=== PATIENT | male | born 1950 | race Caucasian/White ===

== ENCOUNTER 2016-11-18 19:08 | Emergency (ER) | payer MEDICARE ==
[~2016-11-18] VITALS: Ht 167.6 cm; Wt 68.2 kg
[2016-11-18] MEDS ORDERED: [UNRECOGNIZED DRUG - REMARK] PO (19:40)
[2016-11-18] MEDS ORDERED: [UNRECOGNIZED DRUG - REMARK] PO (19:40)
[2016-11-18 20:07] LABS: GLUCOSE,POINT OF CARE 102 MG/DL (70-110)
[2016-11-18 22:19] VITALS: BP 132/60
== END 2016-11-18 23:18 | disposition home or self-care (01) ==
LOC: EMS 19:11
DX: S50.02XA Contusion of left elbow, initial encounter (principal); S00.93XA Contusion of unspecified part of head, initial encounter; E11.9 Type 2 diabetes mellitus without complications; I10 Essential (primary) hypertension; Z86.73 Personal history of transient ischemic attack (TIA), and cerebral infarction without residual deficits; Y04.2XXA Assault by strike against or bumped into by another person, initial encounter; Y93.89 Activity, other specified; Y92.89 Other specified places as the place of occurrence of the external cause; Y99.8 Other external cause status
CPT/HCPCS: 70450; 82962; 99284

== ENCOUNTER 2017-07-20 17:15 | Inpatient (IN) | payer MEDICAID, MEDICARE, OTHER ==
[~2017-07-20] VITALS: Ht 167.6 cm; Wt 74.8 kg
[~2017-07-20 17:15] MED LIST: [UNRECOGNIZED DRUG - REMARK] PO; [UNRECOGNIZED DRUG - REMARK] PO
[2017-07-20 19:33] LABS: GLUCOSE,POINT OF CARE 121 MG/DL (70-110)
[2017-07-20 19:50] LABS: BASOPHILS % (AUTO) 0.5 % (0.0-2.0); EOSINOPHILS % (AUTO) 1.1 % (1.0-6.0); HEMOGLOBIN 15.2 g/dL (13.5-17.5); LYMPHOCYTES # (AUTO) 1.2 K/uL (1.0-4.8); LYMPHOCYTES % (AUTO) 18.9 % (22.0-44.0); MEAN CORPUSCULAR HEMOGLOBIN 30.6 pg (26.0-34.0); MEAN CORPUSCULAR HGB CONC 34.5 G/dL (31.0-37.0); MEAN CORPUSCULAR VOLUME 89 fL (80-100); MONOCYTES # (AUTO) 0.4 K/uL (0.1-1.0); MONOCYTES % (AUTO) 6.8 % (2.0-9.0); NEUTROPHILS # (AUTO) 4.5 K/uL (1.8-7.7); NEUTROPHILS % (AUTO) 72.7 % (40.0-70.0); PLATELET COUNT (AUTO) 278 K/uL (150-450); RED BLOOD CELL COUNT(AUTO) 4.96 MIL/uL (4.50-5.90); RED CELL DISTRIBUTION WIDTH 13.6 % (11.5-14.5)
[2017-07-20 19:57] LABS: ANION GAP 11 mmol/L (8-16); CALCIUM, TOTAL 8.6 mg/dL (8.8-10.5); CARBON DIOXIDE 26 mmol/L (22-29); CHLORIDE 104 mmol/L (98-107); CREATININE 1.22 mg/dL (0.60-1.30); GLOMERULAR FILTR. RATE CALC 59 mL/min (>60); GLUCOSE,RANDOM 124 mg/dL (70-110); POTASSIUM 3.6 mmol/L (3.5-5.1); SODIUM SERUM 141 mmol/L (136-145); UREA NITROGEN, BLOOD 23 mg/dL (7-18)
[2017-07-20 20:03] LABS: ALANINE AMINOTRANSFERASE 34 U/L (12-78); ALBUMIN 3.7 g/dL (3.4-5.0); ALKALINE PHOSPHATASE 99 U/L (46-116); ASPARTATE AMINOTRANSFERASE 24 U/L (15-37); BILIRUBIN,TOTAL 0.3 mg/dL (0.1-1.0); TOTAL PROTEIN, SERUM 7.9 g/dL (6.4-8.2)
[2017-07-21] VITALS (10 sets, daily range): BP systolic 138–160; BP diastolic 68–94
[2017-07-21] MEDS ORDERED: LOPERAMIDE HCL 2 MG CAPSULE PO PRN (01:45)
[2017-07-21] MEDS ORDERED: MAG HYDROX/AL HYDROX/SIMETH ES 30 ML SUSPENSION UDCUP PO PRN (01:45)
[2017-07-21] MEDS ORDERED: LORazepam 2 MG TABLET PO PRN (01:45)
[2017-07-21] MEDS ORDERED: HydrOXYzine PAMOATE 50 MG CAPSULE PO PRN (01:45)
[2017-07-21] MEDS ORDERED: ACETAMINOPHEN 325 MG TABLET PO PRN ×2 (01:45→09:15)
[2017-07-21] MEDS ORDERED: GuaiFENesin/D-METHORPHAN [SUGAR-FREE] 200-20MG/10 ML SYRUP UDCUP PO PRN (01:45)
[2017-07-21] MEDS ORDERED: MAGNESIUM HYDROXIDE SUSPENSION 30 ML UDCUP PO PRN (01:45)
[2017-07-21] MEDS ORDERED: CYANOCOBALAMIN 1,000 MCG/ML VIAL IM ONE (01:45)
[2017-07-21] MEDS: MULTIVITAMINS WITH MINERALS, THERAPEUTIC TABLET PO SCH (09:35)
[2017-07-21] MEDS: AmLODIPine BESYLATE 5 MG TABLET PO SCH (09:35)
[2017-07-21] MEDS: FOLIC ACID 1 MG TABLET PO SCH (09:35)
[2017-07-21] MEDS: THIAMINE HCL 100 MG TABLET PO SCH ×2 (09:35→16:27)
[2017-07-21] MEDS: IBUPROFEN 400 MG TABLET PO PRN (17:15)
[2017-07-22 01:00] VITALS: BP 138/86
[2017-07-22] MEDS: IBUPROFEN 400 MG TABLET PO PRN ×2 (06:34→13:08)
[2017-07-22] MEDS ORDERED: LORazepam 2 MG TABLET PO PRN (07:00)
[2017-07-22 08:30] VITALS: BP 167/95
[2017-07-22] MEDS: FOLIC ACID 1 MG TABLET PO SCH (08:44)
[2017-07-22] MEDS: THIAMINE HCL 100 MG TABLET PO SCH ×2 (08:44→17:00)
[2017-07-22] MEDS: AmLODIPine BESYLATE 5 MG TABLET PO SCH (08:44)
[2017-07-22] MEDS: LORazepam 2 MG TABLET PO SCH ×4 (08:44→21:00)
[2017-07-22] MEDS: MULTIVITAMINS WITH MINERALS, THERAPEUTIC TABLET PO SCH (08:44)
[2017-07-22] MEDS ORDERED: PERMETHRIN 5% 60 GM CREAM TP ONE (09:15)
[2017-07-22 13:09] VITALS: BP 163/106
[2017-07-22] MEDS ORDERED: AmLODIPine BESYLATE 5 MG TABLET PO ONE (13:15)
[2017-07-22 14:10] VITALS: BP 132/79
[2017-07-22 15:00] VITALS: BP 141/84
[2017-07-22 19:00] VITALS: BP 138/88
[2017-07-23 01:15] VITALS: BP 153/85
[2017-07-23 06:27] LABS: HEMOGLOBIN A1C 6.6 % (4.5-6.2)
[2017-07-23 06:39] LABS: CHOL/HDL RATIO 1.7 (4.2-7.3); THYROID STIMULATING HORMONE 1.89 uIU/mL (0.36-3.74)
[2017-07-23] MEDS: MULTIVITAMINS WITH MINERALS, THERAPEUTIC TABLET PO SCH (08:48)
[2017-07-23] MEDS: AmLODIPine BESYLATE 10 MG TABLET PO SCH (08:48)
[2017-07-23] MEDS: THIAMINE HCL 100 MG TABLET PO SCH ×2 (08:48→16:14)
[2017-07-23] MEDS: LORazepam 2 MG TABLET PO SCH ×4 (08:48→20:34)
[2017-07-23] MEDS: FOLIC ACID 1 MG TABLET PO SCH (08:48)
[2017-07-23 09:50] VITALS: BP 150/84
[2017-07-23] MEDS: IBUPROFEN 400 MG TABLET PO PRN (11:26)
[2017-07-23 12:30] VITALS: BP 137/79
[2017-07-23 16:45] VITALS: BP 132/77
[2017-07-24] MEDS ORDERED: LORazepam 1 MG TABLET PO PRN (07:00)
[2017-07-24 08:30] VITALS: BP 143/84
[2017-07-24 08:31] VITALS: BP 143/84
[2017-07-24] MEDS: THIAMINE HCL 100 MG TABLET PO SCH ×2 (09:13→16:42)
[2017-07-24] MEDS: MULTIVITAMINS WITH MINERALS, THERAPEUTIC TABLET PO SCH (09:14)
[2017-07-24] MEDS: LORazepam 1 MG TABLET PO SCH ×4 (09:14→20:41)
[2017-07-24] MEDS: FOLIC ACID 1 MG TABLET PO SCH (09:14)
[2017-07-24] MEDS: AmLODIPine BESYLATE 10 MG TABLET PO SCH (09:14)
[2017-07-24] MEDS: FLUoxetine HCL 10 MG CAPSULE PO SCH (12:50)
[2017-07-24] MEDS: OLANZapine 5 MG RAPDIS TABLET PO SCH (16:42)
[2017-07-24 17:00] VITALS: BP 126/76
[2017-07-25 06:20] VITALS: BP 122/72
[2017-07-25] MEDS ORDERED: LORazepam 1 MG TABLET PO PRN (07:00)
[2017-07-25 08:00] VITALS: BP 117/70
[2017-07-25] MEDS: FLUoxetine HCL 10 MG CAPSULE PO SCH (08:40)
[2017-07-25] MEDS: OLANZapine 5 MG RAPDIS TABLET PO SCH ×2 (08:40→16:32)
[2017-07-25] MEDS: AmLODIPine BESYLATE 10 MG TABLET PO SCH (08:40)
[2017-07-25] MEDS: THIAMINE HCL 100 MG TABLET PO SCH ×2 (08:40→16:32)
[2017-07-25] MEDS: FOLIC ACID 1 MG TABLET PO SCH (08:40)
[2017-07-25] MEDS: MULTIVITAMINS WITH MINERALS, THERAPEUTIC TABLET PO SCH (08:40)
[2017-07-25 17:09] VITALS: BP 133/72
[2017-07-26 08:00] VITALS: BP 133/80
[2017-07-26] MEDS: FLUoxetine HCL 10 MG CAPSULE PO SCH (08:58)
[2017-07-26] MEDS: FOLIC ACID 1 MG TABLET PO SCH (08:58)
[2017-07-26] MEDS: MULTIVITAMINS WITH MINERALS, THERAPEUTIC TABLET PO SCH (08:58)
[2017-07-26] MEDS: THIAMINE HCL 100 MG TABLET PO SCH ×2 (08:58→16:20)
[2017-07-26] MEDS: AmLODIPine BESYLATE 10 MG TABLET PO SCH (08:58)
[2017-07-26] MEDS: OLANZapine 5 MG RAPDIS TABLET PO SCH ×2 (08:58→16:20)
[2017-07-26] MEDS ORDERED: SUMAtriptan SUCCINATE 25 MG TABLET PO PRN (14:30)
[2017-07-26 16:00] VITALS: BP 134/84
[2017-07-27 08:30] VITALS: BP 123/68
[2017-07-27] MEDS: AmLODIPine BESYLATE 10 MG TABLET PO SCH (08:43)
[2017-07-27] MEDS: FLUoxetine HCL 10 MG CAPSULE PO SCH (08:43)
[2017-07-27] MEDS: OLANZapine 5 MG RAPDIS TABLET PO SCH ×2 (08:43→17:22)
[2017-07-27] MEDS: THIAMINE HCL 100 MG TABLET PO SCH ×2 (08:43→17:22)
[2017-07-27] MEDS: MULTIVITAMINS WITH MINERALS, THERAPEUTIC TABLET PO SCH (08:43)
[2017-07-27] MEDS: FOLIC ACID 1 MG TABLET PO SCH (08:43)
[2017-07-27 09:56] VITALS: BP 129/72
[2017-07-27 16:00] VITALS: BP 134/85
[2017-07-28 08:10] VITALS: BP 125/70
[2017-07-28] MEDS: THIAMINE HCL 100 MG TABLET PO SCH ×2 (08:16→16:08)
[2017-07-28] MEDS: MULTIVITAMINS WITH MINERALS, THERAPEUTIC TABLET PO SCH (08:16)
[2017-07-28] MEDS: AmLODIPine BESYLATE 10 MG TABLET PO SCH (08:16)
[2017-07-28] MEDS: OLANZapine 5 MG RAPDIS TABLET PO SCH ×2 (08:16→16:08)
[2017-07-28] MEDS: FOLIC ACID 1 MG TABLET PO SCH (08:16)
[2017-07-28] MEDS: FLUoxetine HCL 10 MG CAPSULE PO SCH (08:16)
[2017-07-28 16:15] VITALS: BP 131/68
[2017-07-28] MEDS: IBUPROFEN 400 MG TABLET PO PRN (16:18)
[2017-07-28 17:18] VITALS: BP 131/70
[2017-07-28] MEDS ORDERED: ACYCLOVIR 200 MG CAPSULE PO SCH (22:00)
[2017-07-28] MEDS ORDERED: ACYCLOVIR 800 MG TABLET PO SCH (22:00)
== END 2017-07-28 22:45 | disposition short-term general hospital (02) | DRG 885 ==
LOC: EMS 17:16 → 3EX 07-21 02:00
PROVIDERS: ADMIT Psychiatry & Neurology Psychiatry; ATTEND Psychiatry & Neurology Psychiatry
DX: F33.3 Major depressive disorder, recurrent, severe with psychotic symptoms (principal); R45.851 Suicidal ideations; E11.9 Type 2 diabetes mellitus without complications; F10.10 Alcohol abuse, uncomplicated; R45.87 Impulsiveness; F41.9 Anxiety disorder, unspecified; B85.1 Pediculosis due to Pediculus humanus corporis; I10 Essential (primary) hypertension; Z59.0 Homelessness; Z79.899 Other long term (current) drug therapy; Z86.73 Personal history of transient ischemic attack (TIA), and cerebral infarction without residual deficits
CPT/HCPCS: 70450; 83036; 84443; 96372; 99285; G0480; J3420

== ENCOUNTER 2017-07-28 22:45 | Inpatient (IN) | payer MEDICARE ==
[2017-07-28 23:49] VITALS: BP 118/83
[2017-07-29] MEDS ORDERED: IBUPROFEN 400 MG TABLET PO PRN
[2017-07-29] MEDS ORDERED: ACETAMINOPHEN 325 MG TABLET PO PRN
[2017-07-29] MEDS ORDERED: MAG HYDROX/AL HYDROX/SIMETH ES 30 ML SUSPENSION UDCUP PO PRN
[2017-07-29] MEDS ORDERED: SUMAtriptan SUCCINATE 25 MG TABLET PO PRN
[2017-07-29] MEDS ORDERED: PNEUMOCOCCAL VACCINE POLYVALENT 0.5 ML VIAL [PPSV23] IM ONE (02:00)
[2017-07-29 04:31] VITALS: BP 114/61
[2017-07-29] MEDS: ACYCLOVIR 800 MG TABLET PO SCH ×5 (05:59→22:38)
[2017-07-29 08:36] VITALS: BP 134/77
[2017-07-29] MEDS: OLANZapine 5 MG TABLET PO SCH ×2 (08:41→20:23)
[2017-07-29] MEDS: FOLIC ACID 1 MG TABLET PO SCH (08:41)
[2017-07-29] MEDS: THIAMINE HCL 100 MG TABLET PO SCH ×2 (08:41→20:23)
[2017-07-29] MEDS: MULTIVITAMINS WITH MINERALS, THERAPEUTIC TABLET PO SCH (08:41)
[2017-07-29] MEDS: FLUoxetine HCL 10 MG CAPSULE PO SCH (08:41)
[2017-07-29] MEDS: AmLODIPine BESYLATE 10 MG TABLET PO SCH (08:44)
[2017-07-29 11:59] VITALS: BP 123/73
[2017-07-29] MEDS ORDERED: MORPHINE SULFATE 4 MG/ML SYRINGE IVP PRN (13:45)
[2017-07-29] MEDS ORDERED: ONDANSETRON HCL 4 MG/2 ML VIAL IVP PRN (13:45)
[2017-07-29] MEDS ORDERED: MAGNESIUM HYDROXIDE SUSPENSION 30 ML UDCUP PO PRN ×2 (13:45)
[2017-07-29] MEDS ORDERED: BISACODYL 10 MG RECTAL RECTAL SUPPOSITORY PR PRN (13:45)
[2017-07-29] MEDS ORDERED: ZOLPIDEM TARTRATE 5 MG TABLET PO PRN (13:45)
[2017-07-29] MEDS ORDERED: HYDROCODONE/ACETAMINOPHEN 5-325 MG TABLET PO PRN (13:45)
[2017-07-29 16:14] VITALS: BP 126/80
[2017-07-29] MEDS: DOCUSATE SODIUM 100 MG CAPSULE PO SCH (20:23)
[2017-07-30 04:00] VITALS: BP 134/73
[2017-07-30] MEDS: ACYCLOVIR 800 MG TABLET PO SCH ×5 (06:09→21:12)
[2017-07-30 07:34] VITALS: BP 125/61
[2017-07-30] MEDS: AmLODIPine BESYLATE 10 MG TABLET PO SCH (08:55)
[2017-07-30] MEDS: PANTOPRAZOLE SODIUM 40 MG DR TABLET PO SCH (08:55)
[2017-07-30] MEDS: DOCUSATE SODIUM 100 MG CAPSULE PO SCH ×2 (08:55→21:12)
[2017-07-30] MEDS: MULTIVITAMINS WITH MINERALS, THERAPEUTIC TABLET PO SCH (08:55)
[2017-07-30] MEDS: FOLIC ACID 1 MG TABLET PO SCH (08:55)
[2017-07-30] MEDS: OLANZapine 5 MG TABLET PO SCH ×2 (08:55→21:12)
[2017-07-30] MEDS: THIAMINE HCL 100 MG TABLET PO SCH ×2 (08:55→21:12)
[2017-07-30] MEDS: FLUoxetine HCL 10 MG CAPSULE PO SCH (08:56)
[2017-07-30 11:06] LABS: BASOPHILS % (AUTO) 0.7 % (0.0-2.0); EOSINOPHILS % (AUTO) 4.5 % (1.0-6.0); HEMATOCRIT 34.9 % (41-53); HEMOGLOBIN 11.3 g/dL (13.5-17.5); LYMPHOCYTES # (AUTO) 1.2 K/uL (1.0-4.8); LYMPHOCYTES % (AUTO) 21.8 % (22.0-44.0); MEAN CORPUSCULAR HEMOGLOBIN 23.1 pg (26.0-34.0); MEAN CORPUSCULAR HGB CONC 32.3 G/dL (31.0-37.0); MEAN CORPUSCULAR VOLUME 72 fL (80-100); MONOCYTES # (AUTO) 0.9 K/uL (0.1-1.0); MONOCYTES % (AUTO) 15.6 % (2.0-9.0); NEUTROPHILS # (AUTO) 3.3 K/uL (1.8-7.7); NEUTROPHILS % (AUTO) 57.4 % (40.0-70.0); PLATELET COUNT (AUTO) 226 K/uL (150-450); RED BLOOD CELL COUNT(AUTO) 4.88 MIL/uL (4.50-5.90); RED CELL DISTRIBUTION WIDTH 20.9 % (11.5-14.5)
[2017-07-30 11:22] VITALS: BP 121/77
[2017-07-30 11:23] LABS: ALANINE AMINOTRANSFERASE 34 U/L (12-78); ALBUMIN 3.5 g/dL (3.4-5.0); ALKALINE PHOSPHATASE 90 U/L (46-116); ANION GAP 9 mmol/L (8-16); ASPARTATE AMINOTRANSFERASE 18 U/L (15-37); BILIRUBIN,TOTAL 0.2 mg/dL (0.1-1.0); CALCIUM, TOTAL 8.8 mg/dL (8.8-10.5); CARBON DIOXIDE 27 mmol/L (22-29); CHLORIDE 102 mmol/L (98-107); CREATININE 1.02 mg/dL (0.60-1.30); GLOMERULAR FILTR. RATE CALC > 60 mL/min (>60); GLUCOSE,RANDOM 146 mg/dL (70-110); POTASSIUM 4.4 mmol/L (3.5-5.1); SODIUM SERUM 138 mmol/L (136-145); TOTAL PROTEIN, SERUM 8.5 g/dL (6.4-8.2); UREA NITROGEN, BLOOD 19 mg/dL (7-18)
[2017-07-30 16:29] VITALS: BP 119/73
[2017-07-30] MEDS: GuaiFENesin/D-METHORPHAN [SUGAR-FREE] 200-20MG/10 ML SYRUP UDCUP PO PRN (18:05)
[2017-07-30 19:48] VITALS: BP 121/69
[2017-07-31 00:11] VITALS: BP 129/66
[2017-07-31 05:00] VITALS: BP 137/79
[2017-07-31] MEDS: ACYCLOVIR 800 MG TABLET PO SCH ×5 (06:13→21:09)
[2017-07-31 07:56] VITALS: BP 144/85
[2017-07-31] MEDS: DOCUSATE SODIUM 100 MG CAPSULE PO SCH ×2 (07:57→21:09)
[2017-07-31] MEDS: OLANZapine 5 MG TABLET PO SCH ×2 (07:57→21:09)
[2017-07-31] MEDS: MULTIVITAMINS WITH MINERALS, THERAPEUTIC TABLET PO SCH (07:57)
[2017-07-31] MEDS: FLUoxetine HCL 10 MG CAPSULE PO SCH (07:57)
[2017-07-31] MEDS: AmLODIPine BESYLATE 10 MG TABLET PO SCH (07:57)
[2017-07-31] MEDS: PANTOPRAZOLE SODIUM 40 MG DR TABLET PO SCH (07:57)
[2017-07-31] MEDS: FOLIC ACID 1 MG TABLET PO SCH (07:58)
[2017-07-31] MEDS: THIAMINE HCL 100 MG TABLET PO SCH ×2 (07:58→21:09)
[2017-07-31] MEDS: GuaiFENesin/D-METHORPHAN [SUGAR-FREE] 200-20MG/10 ML SYRUP UDCUP PO PRN ×2 (08:02→21:08)
[2017-07-31 12:18] VITALS: BP 142/79
[2017-07-31 15:48] VITALS: BP 136/74
[2017-07-31 20:00] VITALS: BP 125/74
[2017-08-01 00:23] VITALS: BP 147/78
[2017-08-01 04:00] VITALS: BP 135/72
[2017-08-01] MEDS: GuaiFENesin/D-METHORPHAN [SUGAR-FREE] 200-20MG/10 ML SYRUP UDCUP PO PRN (06:12)
[2017-08-01] MEDS: ACYCLOVIR 800 MG TABLET PO SCH ×2 (06:12→08:55)
[2017-08-01 08:26] VITALS: BP 138/80
[2017-08-01] MEDS: FLUoxetine HCL 10 MG CAPSULE PO SCH (08:51)
[2017-08-01] MEDS: AmLODIPine BESYLATE 10 MG TABLET PO SCH (08:51)
[2017-08-01] MEDS: PANTOPRAZOLE SODIUM 40 MG DR TABLET PO SCH (08:51)
[2017-08-01] MEDS: MULTIVITAMINS WITH MINERALS, THERAPEUTIC TABLET PO SCH (08:51)
[2017-08-01] MEDS: DOCUSATE SODIUM 100 MG CAPSULE PO SCH (08:51)
[2017-08-01] MEDS: THIAMINE HCL 100 MG TABLET PO SCH (08:51)
[2017-08-01] MEDS: FOLIC ACID 1 MG TABLET PO SCH (08:52)
[2017-08-01] MEDS: OLANZapine 5 MG TABLET PO SCH (08:55)
[2017-08-01 11:57] VITALS: BP 152/84
== END 2017-08-01 13:24 | DRG 596 ==
LOC: 6N 22:45
PROVIDERS: ADMIT Internal Medicine; ATTEND Internal Medicine
DX: B02.9 Zoster without complications (principal); R45.851 Suicidal ideations; E11.9 Type 2 diabetes mellitus without complications; I10 Essential (primary) hypertension; F32.9 Major depressive disorder, single episode, unspecified; F10.10 Alcohol abuse, uncomplicated; Z86.73 Personal history of transient ischemic attack (TIA), and cerebral infarction without residual deficits; Z59.0 Homelessness
CPT/HCPCS: 87081

== ENCOUNTER 2017-08-01 13:30 | Inpatient (IN) | payer MEDICARE ==
[~2017-08-01] VITALS: Ht 170.2 cm; Wt 76.4 kg
[2017-08-01 15:13] VITALS: BP 143/82
[2017-08-01] MEDS ORDERED: ZOLPIDEM TARTRATE 5 MG TABLET PO PRN (15:15)
[2017-08-01] MEDS: ACYCLOVIR 800 MG TABLET PO SCH ×2 (17:23→20:13)
[2017-08-01] MEDS: DOCUSATE SODIUM 100 MG CAPSULE PO SCH (17:24)
[2017-08-01] MEDS: OLANZapine 5 MG TABLET PO SCH (17:24)
[2017-08-01] MEDS: THIAMINE HCL 100 MG TABLET PO SCH (17:25)
[2017-08-01] MEDS ORDERED: IBUPROFEN 400 MG TABLET PO PRN (18:30)
[2017-08-01] MEDS ORDERED: ACETAMINOPHEN 325 MG TABLET PO PRN (18:30)
[2017-08-01 18:49] VITALS: BP 137/77
[2017-08-02] MEDS: ACYCLOVIR 800 MG TABLET PO SCH ×5 (06:00→21:03)
[2017-08-02] MEDS ORDERED: FLUoxetine HCL 10 MG CAPSULE PO SCH (09:00)
[2017-08-02] MEDS: FOLIC ACID 1 MG TABLET PO SCH (09:00)
[2017-08-02] MEDS: PANTOPRAZOLE SODIUM 40 MG DR TABLET PO SCH (09:00)
[2017-08-02] MEDS: THIAMINE HCL 100 MG TABLET PO SCH ×2 (09:00→16:39)
[2017-08-02] MEDS: AmLODIPine BESYLATE 10 MG TABLET PO SCH (09:00)
[2017-08-02] MEDS: MULTIVITAMINS WITH MINERALS, THERAPEUTIC TABLET PO SCH (09:00)
[2017-08-02] MEDS: OLANZapine 5 MG TABLET PO SCH (09:00)
[2017-08-02] MEDS: DOCUSATE SODIUM 100 MG CAPSULE PO SCH ×2 (09:00→16:39)
[2017-08-02 18:45] VITALS: BP 132/76
[2017-08-03] MEDS: ACYCLOVIR 800 MG TABLET PO SCH ×5 (06:27→22:45)
[2017-08-03 06:33] VITALS: BP 135/80
[2017-08-03 08:05] VITALS: BP 134/65
[2017-08-03] MEDS: PANTOPRAZOLE SODIUM 40 MG DR TABLET PO SCH (08:30)
[2017-08-03] MEDS: FOLIC ACID 1 MG TABLET PO SCH (08:30)
[2017-08-03] MEDS: THIAMINE HCL 100 MG TABLET PO SCH ×2 (08:30→18:29)
[2017-08-03] MEDS: AmLODIPine BESYLATE 10 MG TABLET PO SCH (08:30)
[2017-08-03] MEDS: MULTIVITAMINS WITH MINERALS, THERAPEUTIC TABLET PO SCH (08:30)
[2017-08-03] MEDS: FLUoxetine HCL 20 MG CAPSULE PO SCH (08:30)
[2017-08-03] MEDS: DOCUSATE SODIUM 100 MG CAPSULE PO SCH ×2 (08:30→18:28)
[2017-08-03 18:01] VITALS: BP 156/87
[2017-08-04] MEDS: ACYCLOVIR 800 MG TABLET PO SCH ×5 (06:51→22:11)
[2017-08-04 09:17] VITALS: BP 120/82
[2017-08-04] MEDS: FLUoxetine HCL 20 MG CAPSULE PO SCH (10:31)
[2017-08-04] MEDS: AmLODIPine BESYLATE 10 MG TABLET PO SCH (10:31)
[2017-08-04] MEDS: DOCUSATE SODIUM 100 MG CAPSULE PO SCH ×2 (10:31→17:43)
[2017-08-04] MEDS: PANTOPRAZOLE SODIUM 40 MG DR TABLET PO SCH (10:31)
[2017-08-04] MEDS: FOLIC ACID 1 MG TABLET PO SCH (10:31)
[2017-08-04] MEDS: MULTIVITAMINS WITH MINERALS, THERAPEUTIC TABLET PO SCH (10:31)
[2017-08-04] MEDS: THIAMINE HCL 100 MG TABLET PO SCH ×2 (10:32→17:42)
[2017-08-04 19:29] VITALS: BP_SYST 130; BP_SYST 151; BP_DIAS 80
[2017-08-05] MEDS: ACYCLOVIR 800 MG TABLET PO SCH ×3 (06:07→12:55)
[2017-08-05 08:30] VITALS: BP 134/75
[2017-08-05] MEDS: DOCUSATE SODIUM 100 MG CAPSULE PO SCH (12:25)
[2017-08-05] MEDS: FLUoxetine HCL 20 MG CAPSULE PO SCH (12:25)
[2017-08-05] MEDS: MULTIVITAMINS WITH MINERALS, THERAPEUTIC TABLET PO SCH (12:25)
[2017-08-05] MEDS: AmLODIPine BESYLATE 10 MG TABLET PO SCH (12:25)
[2017-08-05] MEDS: PANTOPRAZOLE SODIUM 40 MG DR TABLET PO SCH (12:25)
[2017-08-05] MEDS: THIAMINE HCL 100 MG TABLET PO SCH (12:25)
[2017-08-05] MEDS: FOLIC ACID 1 MG TABLET PO SCH (12:25)
[2017-08-05] MEDS ORDERED: FLUO-191 PO (12:28)
[2017-08-05] MEDS ORDERED: ACYC800T PO (12:29)
[2017-08-05] MEDS ORDERED: PANT40TA25 PO (12:29)
[2017-08-05] MEDS ORDERED: MULT-1239 PO (12:29)
[2017-08-05] MEDS ORDERED: DSS100 PO (12:29)
[2017-08-05] MEDS ORDERED: AMLO-512 PO (12:29)
[2017-08-05] MEDS ORDERED: FOLI1 PO (12:29)
[2017-08-05] MEDS ORDERED: THIA100T67 PO (12:30)
== END 2017-08-05 14:50 | disposition home or self-care (01) | DRG 885 ==
LOC: 3EI 13:30 → UNDODISIN 08-04 14:30
PROVIDERS: ADMIT Psychiatry & Neurology Psychiatry; ATTEND Psychiatry & Neurology Psychiatry
DX: F33.2 Major depressive disorder, recurrent severe without psychotic features (principal); R45.851 Suicidal ideations; B02.9 Zoster without complications; E11.9 Type 2 diabetes mellitus without complications; I10 Essential (primary) hypertension; F19.10 Other psychoactive substance abuse, uncomplicated; Z59.0 Homelessness; Z86.73 Personal history of transient ischemic attack (TIA), and cerebral infarction without residual deficits; Z91.5 Personal history of self-harm; Z71.51 Drug abuse counseling and surveillance of drug abuser; Z79.899 Other long term (current) drug therapy
CPT/HCPCS: 87081